=== PATIENT | male | born 2000 | race Two or more races ===

== ENCOUNTER 2023-05-02 20:11 | Inpatient (IN) | payer MEDICAID, OTHER ==
[~2023-05-02] VITALS: Ht 182.9 cm; Wt 125.0 kg
[2023-05-02] MEDS ORDERED: LORazepam 2MG/ML-1ML VIAL IV ONE (20:15)
[2023-05-02] MEDS ORDERED: LORazepam 2MG/ML-1ML VIAL ONE (20:17)
[2023-05-02 21:40] LABS: Albumin 3.3 g/dL (3.4-5.0); Calcium 8.1 mg/dL (8.5-10.1); Magnesium 1.6 mg/dL (1.6-2.6); Potassium 4.2 mmol/L (3.5-5.1)
[2023-05-02 21:45] LABS: INR 1.06 (0.9-1.15); Partial Thromboplastin Time 27.3 sec (24.6-33.4)
[2023-05-02 21:52] LABS: BUN/Creatinine Ratio 5.4 (10.0-20.0); Bilirubin, Total 0.4 mg/dL (0.2-1.0); Total Protein 6.2 g/dL (6.4-8.2)
[2023-05-02 22:25] LABS: Hematocrit 37.7 % (41.0-53.0); Hemoglobin 13.6 g/dL (13.5-17.5); Mean Corpuscular Hemoglobin 28.7 pg (28.0-32.0); Mean Corpuscular Hgb Conc. 36.1 g/dL (32.0-36.0); Mean Corpuscular Volume 79.4 fL (80.0-100.0); Red Blood Cells 4.75 10^6/uL (4.5-5.90); Red Cell Distribution Width 14.3 % (11.8-14.3); White Blood Cell 10.2 10^3/uL (4.4-10.8)
[2023-05-02 22:28] LABS: Band Neutrophils % (manual) 0; Basophils % (manual) 0 (0.0-2.0); Blast Cells 0; Eosinophils % (manual) 0 (0-7); Metamyelocytes % 0; Myelocytes % 0; Promyelocytes % 0; Reactive Lymphocytes 0
[2023-05-02] MEDS ORDERED: levETIRAcetam 500 MG/5ML INJ IV ONE (22:38)
[2023-05-02 22:42] LABS: Lymphocytes % (manual) 10 (10.0-50.0); Monocytes % (manual) 8 (0-12)
[2023-05-03] MEDS ORDERED: DexAMETHasone SOD PHOS 4 MG/1ML SDV INJ IV ONE (00:45)
[2023-05-03] MEDS ORDERED: CEFTRIAXONE SODIUM 2 GM in D5W 5% 100 ML IV ONE (00:45)
[2023-05-03] MEDS ORDERED: VANCOMYCIN 1GM/250ML 250 ML IV ONE ×2 (00:45→02:30)
[2023-05-03] MEDS ORDERED: NITROGLYCERIN 0.4 MG SL TAB SL PRN (01:00)
[2023-05-03] MEDS ORDERED: ONDANSETRON HCL 4 MG/2 ML VIAL IV PRN (01:00)
[2023-05-03] MEDS ORDERED: HYDROcodone-ACET 5/325MG TAB PO PRN (01:00)
[2023-05-03] MEDS ORDERED: VANCOMYCIN PER PHARMACY 0 MG IV SCH (01:00)
[2023-05-03] MEDS ORDERED: DOCUSATE SOD 100 MG CAP PO PRN (01:00)
[2023-05-03] MEDS ORDERED: ACETAMINOPHEN 325 MG TAB PO PRN (01:00)
[2023-05-03] MEDS: SODIUM CHLORIDE 0.9% 1,000 ML IV SCH ×2 (01:41→20:25)
[2023-05-03] MEDS ORDERED: cefTRIAXone SOD 1,000 MG VL ONE (01:47)
[2023-05-03] MEDS ORDERED: cefTRIAXone 1GM/50ML D5W 50 ML IV ONE (01:47)
[2023-05-03 04:52] LABS: Urine WBC None Seen /hpf (0 - 3)
[2023-05-03 04:59] LABS: Urine Bacteria NONE SEEN /hpf (None Seen); Urine Blood Negative /uL (Negative); Urine Hyaline Cast FEW /lpf (0 - 2); Urine Specific Gravity 1.001 (1.001-1.035)
[2023-05-03 05:17] LABS: Alcohol, Urine < 3.0 mg/dL (0-10); Amphetamine Screen, Urine NEGATIVE (NEGATIVE); Barbiturate Scree,Urine NEGATIVE (NEGATIVE); Benzodiazephine Screen, Urine NEGATIVE (NEGATIVE); Cannabinoid Screen, Urine NEGATIVE (NEGATIVE); Cocaine Screen, Urine NEGATIVE (NEGATIVE); Opiate Scree,Urine NEGATIVE (NEGATIVE); Phencyclidine Screen, Urine NEGATIVE (NEGATIVE)
[2023-05-03] MEDS ORDERED: VANCOMYCIN 1GM/250ML 250 ML IV SCH (09:00)
[2023-05-03] MEDS ORDERED: DexAMETHasone SOD PHOS 10MG/1ML VIAL INJ IV SCH (10:00)
[2023-05-03] MEDS: FAMOTIDINE (10MG/ML) 2ML VL IV SCH (10:19)
[2023-05-03] MEDS ORDERED: CEFEPIME 2 GM in SODIUM CHL 0.9% 50 ML IV SCH (15:15)
[2023-05-03] MEDS: VANCOMYCIN 1GM/250ML 250 ML IV SCH ×2 (16:14→23:40)
[2023-05-03] MEDS: DexAMETHasone INJECTION 10 MG in D5W 5% 50 ML IV SCH ×2 (16:33→21:52)
[2023-05-03] MEDS: CEFEPIME 2GM/50ML NS 50 ML IV SCH (16:48)
[2023-05-04] MEDS: CEFEPIME 2GM/50ML NS 50 ML IV SCH ×3 (00:34→16:08)
[2023-05-04] MEDS ORDERED: levETIRAcetam 500 MG/5ML INJ IV ONE (01:09)
[2023-05-04] MEDS: DexAMETHasone INJECTION 10 MG in D5W 5% 50 ML IV SCH ×3 (03:56→14:18)
[2023-05-04] MEDS: VANCOMYCIN 1GM/250ML 250 ML IV SCH (04:00)
[2023-05-04] MEDS: MORPHINE SULFATE INJ 2 MG/ml SYRG IV PRN ×2 (04:09→04:38)
[2023-05-04] MEDS ORDERED: LORazepam 2MG/ML-1ML VIAL IV ONE (04:30)
[2023-05-04] MEDS ORDERED: SODIUM CHLORIDE 0.9% 1,000 ML IV ONE (04:30)
[2023-05-04 04:52] LABS: Basophils # (auto) 0 10 ^3/uL (0-0.2); Basophils % (auto) 0.1 % (0.0-2.0); Eosinophils # (auto) 0 10 ^3/uL (0-0.8); Hematocrit 40.3 % (41.0-53.0); Hemoglobin 14.1 g/dL (13.5-17.5); Lymphocytes % (auto) 13.7 % (10.0-50.0); Mean Corpuscular Hemoglobin 29.5 pg (28.0-32.0); Mean Corpuscular Volume 84.4 fL (80.0-100.0); Monocytes # (auto) 0.3 10 ^3/uL (0-1.3); Monocytes % (auto) 3.6 % (0.0-12.0); Neutrophils % (auto) 82.6 % (37.0-80.0); Red Blood Cells 4.77 10^6/uL (4.5-5.90); Red Cell Distribution Width 15.1 % (11.8-14.3); White Blood Cell 7.3 10^3/uL (4.4-10.8)
[2023-05-04 05:13] LABS: Albumin 3.5 g/dL (3.4-5.0); BUN/Creatinine Ratio 10.3 (10.0-20.0); Calcium 8.7 mg/dL (8.5-10.1); Potassium 3.8 mmol/L (3.5-5.1)
[2023-05-04 05:15] LABS: Bilirubin, Total 0.3 mg/dL (0.2-1.0)
[2023-05-04] MEDS ORDERED: LORazepam 2MG/ML-1ML VIAL IV PRN (05:15)
[2023-05-04] MEDS ORDERED: DexAMETHasone SOD PHOS 10MG/1ML VIAL INJ ONE ×2 (08:33→14:13)
[2023-05-04] MEDS: FAMOTIDINE (10MG/ML) 2ML VL IV SCH (08:37)
[2023-05-04] MEDS: SODIUM CHLORIDE 0.9% 1,000 ML IV SCH (09:47)
[2023-05-04] MEDS: LORazepam 2MG/ML-1ML VIAL IV PRN ×2 (11:26→14:43)
[2023-05-04] MEDS ORDERED: VANCOMYCIN 1GM/250ML 250 ML IV SCH (16:00)
[2023-05-04 19:23] VITALS: BP 153/91
== END 2023-05-04 19:26 | disposition short-term general hospital (02) | DRG 53 ==
LOC: EDBD 20:11 → ER 20:22 → TELE 05-03 01:08
PROVIDERS: ADMIT Nurse Practitioner Family; ATTEND Nurse Practitioner Family
DX: G40.801 Other epilepsy, not intractable, with status epilepticus (principal); G93.6 Cerebral edema; R26.81 Unsteadiness on feet; E87.1 Hypo-osmolality and hyponatremia; Z20.822 Contact with and (suspected) exposure to COVID-19; Z87.820 Personal history of traumatic brain injury; Z87.891 Personal history of nicotine dependence
CPT/HCPCS: 36415; 70450; 71045; 71275; 80053; 80202; 80307; 81001; 83605; 83735; 84484; 85007; 85025; 85027; 85610; 85730; 87040; 87426; G0378; J0692; J0696; J1100; J2405; J3490; J7060

== ENCOUNTER 2023-05-13 20:30 | Inpatient (IN) | payer MEDICAID ==
[~2023-05-13] VITALS: Ht 180.3 cm; Wt 80.2 kg
[2023-05-13 23:58] VITALS: BP 111/68
[2023-05-14] MEDS ORDERED: LORazepam 2MG/ML-1ML VIAL IV PRN (00:45)
[2023-05-14] MEDS ORDERED: ONDANSETRON HCL 4 MG/2 ML VIAL IV PRN (00:45)
[2023-05-14] MEDS ORDERED: ACETAMINOPHEN 325 MG TAB PO PRN (00:45)
[2023-05-14] MEDS ORDERED: NITROGLYCERIN 0.4 MG SL TAB SL PRN (00:45)
[2023-05-14] MEDS ORDERED: MORPHINE SULFATE INJ 2 MG/ml SYRG IV PRN (00:45)
[2023-05-14] MEDS: TEMAZEPAM 15 MG CAP PO PRN ×2 (01:37→23:06)
[2023-05-14 02:24] LABS: Basophils # (auto) 0 10 ^3/uL (0-0.2); Basophils % (auto) 0.8 % (0.0-2.0); Eosinophils # (auto) 0.1 10 ^3/uL (0-0.8); Eosinophils % (auto) 2.4 % (0.0-7.0); Hematocrit 41.9 % (41.0-53.0); Hemoglobin 14.6 g/dL (13.5-17.5); Lymphocytes # (auto) 1.6 10 ^3/uL (0.4-5.4); Mean Corpuscular Hemoglobin 29.6 pg (28.0-32.0); Mean Corpuscular Hgb Conc. 34.9 g/dL (32.0-36.0); Mean Corpuscular Volume 84.9 fL (80.0-100.0); Monocytes # (auto) 0.4 10 ^3/uL (0-1.3); Monocytes % (auto) 6.9 % (0.0-12.0); Neutrophils % (auto) 57.9 % (37.0-80.0); Nucleated Red Blood Cells % 0.2 %; Red Blood Cells 4.93 10^6/uL (4.5-5.90); Red Cell Distribution Width 14.2 % (11.8-14.3); White Blood Cell 5.1 10^3/uL (4.4-10.8)
[2023-05-14 02:33] LABS: Albumin 3.6 g/dL (3.4-5.0); Calcium 9.1 mg/dL (8.5-10.1); Potassium 4.7 mmol/L (3.5-5.1)
[2023-05-14 02:38] LABS: BUN/Creatinine Ratio 18.5 (10.0-20.0); Bilirubin, Total 0.4 mg/dL (0.2-1.0); Total Protein 6.7 g/dL (6.4-8.2)
[2023-05-14 05:32] VITALS: BP 106/44
[2023-05-14] MEDS: GABAPENTIN 100 MG CAP PO SCH ×3 (06:12→21:07)
[2023-05-14 09:10] VITALS: BP 139/78
[2023-05-14] MEDS ORDERED: LACOSAMIDE 150 MG PO SCH (10:00)
[2023-05-14] MEDS: levETIRAcetam 500 MG/5ML ORAL SOLN UD PO SCH ×2 (10:05→21:08)
[2023-05-14] MEDS: LACOSAMIDE 50 MG TAB PO SCH ×2 (10:32→21:08)
[2023-05-14 12:23] VITALS: BP 147/89
[2023-05-14] MEDS: LORazepam 0.5 MG TAB PO PRN ×2 (14:55→18:39)
[2023-05-14] MEDS ORDERED: VANCOMYCIN PER PHARMACY 0 MG IV SCH (16:30)
[2023-05-14 16:57] VITALS: BP 132/73
[2023-05-14] MEDS ORDERED: VANCOMYCIN 1GM/250ML 250 ML IV ONE (17:30)
[2023-05-14] MEDS: ACETAMINOPHEN/CODEINE#3 (300/30mg) TAB PO PRN ×2 (17:38→21:47)
[2023-05-14] MEDS: MIRTAZAPINE 30 MG TAB PO SCH (21:07)
[2023-05-14] MEDS: CEFEPIME 2GM/50ML NS 50 ML IV SCH (21:08)
[2023-05-14 22:00] VITALS: BP 124/85
[2023-05-15] MEDS: ACETAMINOPHEN/CODEINE#3 (300/30mg) TAB PO PRN ×3 (02:24→20:54)
[2023-05-15] MEDS: VANCOMYCIN 1GM/250ML 250 ML IV SCH ×3 (02:24→23:07)
[2023-05-15 05:00] VITALS: BP 111/67
[2023-05-15] MEDS: GABAPENTIN 100 MG CAP PO SCH ×3 (05:47→20:54)
[2023-05-15] MEDS: CEFEPIME 2GM/50ML NS 50 ML IV SCH ×3 (05:47→20:54)
[2023-05-15 09:00] VITALS: BP_SYST 128; BP_SYST 132; BP_DIAS 58; BP_DIAS 88
[2023-05-15] MEDS: levETIRAcetam 500 MG/5ML ORAL SOLN UD PO SCH ×2 (11:00→21:36)
[2023-05-15] MEDS: LACOSAMIDE 50 MG TAB PO SCH ×2 (11:01→20:54)
[2023-05-15 13:00] VITALS: BP 125/85
[2023-05-15 17:00] VITALS: BP 134/82
[2023-05-15] MEDS: MIRTAZAPINE 30 MG TAB PO SCH (20:54)
[2023-05-15 22:12] VITALS: BP 115/77
[2023-05-15] MEDS: LORazepam 0.5 MG TAB PO PRN (23:06)
[2023-05-16] MEDS: TEMAZEPAM 15 MG CAP PO PRN (00:42)
[2023-05-16] MEDS: ACETAMINOPHEN/CODEINE#3 (300/30mg) TAB PO PRN ×3 (02:02→20:22)
[2023-05-16 05:00] VITALS: BP 105/67
[2023-05-16] MEDS: CEFEPIME 2GM/50ML NS 50 ML IV SCH ×3 (05:11→22:00)
[2023-05-16] MEDS: GABAPENTIN 100 MG CAP PO SCH ×3 (05:12→22:00)
[2023-05-16] MEDS: LORazepam 0.5 MG TAB PO PRN ×3 (05:19→20:22)
[2023-05-16 08:25] VITALS: BP 122/68
[2023-05-16] MEDS: VANCOMYCIN 1GM/250ML 250 ML IV SCH ×2 (10:34→19:00)
[2023-05-16] MEDS: LACOSAMIDE 50 MG TAB PO SCH ×2 (10:44→22:00)
[2023-05-16] MEDS: levETIRAcetam 500 MG/5ML ORAL SOLN UD PO SCH ×2 (10:47→22:00)
[2023-05-16 12:30] VITALS: BP 123/69
[2023-05-16] MEDS ORDERED: ATENOLOL 25 MG TAB PO ONE (13:45)
[2023-05-16 14:05] LABS: Calcium 9.3 mg/dL (8.5-10.1); Potassium 4.2 mmol/L (3.5-5.1)
[2023-05-16 16:20] VITALS: BP 126/83
[2023-05-16] MEDS ORDERED: ACET300T58 PO ×2 (17:09)
[2023-05-16] MEDS ORDERED: LORA-1123 PO (17:09)
[2023-05-16 19:00] VITALS: BP 126/83
[2023-05-16 22:00] VITALS: BP 106/65
[2023-05-16] MEDS: MIRTAZAPINE 30 MG TAB PO SCH (22:00)
[2023-05-17] MEDS: ACETAMINOPHEN/CODEINE#3 (300/30mg) TAB PO PRN (00:07)
[2023-05-17] MEDS ORDERED: ACET300T58 PO (10:57)
== END 2023-05-17 00:45 | disposition home or self-care (01) | DRG 50 ==
LOC: TELE 20:30 → UNDOADMIN 20:30 → TELE-WESTW 21:04 → TELE 21:04 → TELE-WESTW 21:50
PROVIDERS: ADMIT Internal Medicine; ATTEND Internal Medicine
DX: G03.9 Meningitis, unspecified (principal); G93.6 Cerebral edema; G40.901 Epilepsy, unspecified, not intractable, with status epilepticus; G91.9 Hydrocephalus, unspecified; F41.9 Anxiety disorder, unspecified; R00.0 Tachycardia, unspecified; R07.89 Other chest pain; R44.1 Visual hallucinations; Z87.820 Personal history of traumatic brain injury; Z86.61 Personal history of infections of the central nervous system; Z87.891 Personal history of nicotine dependence
CPT/HCPCS: 36415; 80048; 80053; 80202; 82565; 84443; 85025; 93005; 93306; G0378; J0692; J2405

== ENCOUNTER 2023-05-24 02:36 | Emergency (ER) | payer MEDICAID ==
[~2023-05-24] VITALS: Ht 177.8 cm; Wt 80.0 kg
[~2023-05-24 02:36] MED LIST: ACET300T58 PO; LORA-1123 PO
[2023-05-24 03:49] LABS: Alanine Aminotransferase 34 U/L (16-61); Albumin 3.2 g/dL (3.4-5.0); Anion Gap 6 (5-15); Aspartate Aminotransferase 28 U/L (15-37); BUN/Creatinine Ratio 13.2 (10.0-20.0); Blood Urea Nitrogen 10 mg/dL (7-18); Carbon Dioxide 26 mmol/L (21-32); Chloride 109 mmol/L (98-107); GFR African American 163 mL/min; GFR Non-African American 135 mL/min; Glucose 86 mg/dL (74-106); Sodium 141 mmol/L (136-145)
[2023-05-24 03:52] LABS: Alkaline Phosphatase 227 U/L (45-117); Bilirubin, Total 0.3 mg/dL (0.2-1.0); Total Protein 6.6 g/dL (6.4-8.2)
[2023-05-24 04:04] LABS: Basophils # (auto) 0.1 10 ^3/uL (0-0.2); Eosinophils # (auto) 0.5 10 ^3/uL (0-0.8); Eosinophils % (auto) 6.3 % (0.0-7.0); Hematocrit 42.3 % (41.0-53.0); Lymphocytes # (auto) 2.7 10 ^3/uL (0.4-5.4); Lymphocytes % (auto) 37.7 % (10.0-50.0); Mean Corpuscular Hemoglobin 29.5 pg (28.0-32.0); Mean Corpuscular Hgb Conc. 35.4 g/dL (32.0-36.0); Mean Corpuscular Volume 83.4 fL (80.0-100.0); Monocytes # (auto) 0.4 10 ^3/uL (0-1.3); Neutrophils # (auto) 3.6 10 ^3/uL (1.6-8.6); Nucleated Red Blood Cells % 0.6 %; Red Blood Cells 5.08 10^6/uL (4.5-5.90); Red Cell Distribution Width 13.8 % (11.8-14.3); White Blood Cell 7.2 10^3/uL (4.4-10.8)
[2023-05-24] MEDS ORDERED: SODIUM CHLORIDE 0.9% 1,000 ML IV ONE (06:45)
[2023-05-24] MEDS ORDERED: LORazepam 2MG/ML-1ML VIAL IV ONE (06:45)
[2023-05-24 06:48] LABS: Urine Bacteria MOD /hpf (None Seen); Urine Blood Negative /uL (Negative); Urine Hyaline Cast FEW /lpf (0 - 2); Urine Specific Gravity 1.005 (1.001-1.035); Urine WBC <1 /hpf (0 - 3)
[2023-05-24] MEDS ORDERED: NITR-87 PO (07:04)
[2023-05-24] MEDS ORDERED: LORA-1121 PO (07:04)
[2023-05-24 07:07] LABS: Basophils # (auto) 0 10 ^3/uL (0-0.2); Basophils % (auto) 0.4 % (0.0-2.0); Eosinophils # (auto) 0 10 ^3/uL (0-0.8); Eosinophils % (auto) 0.4 % (0.0-7.0); Hematocrit 43.2 % (41.0-53.0); Lymphocytes # (auto) 0.9 10 ^3/uL (0.4-5.4); Mean Corpuscular Hemoglobin 29.4 pg (28.0-32.0); Mean Corpuscular Hgb Conc. 34.8 g/dL (32.0-36.0); Mean Corpuscular Volume 84.5 fL (80.0-100.0); Monocytes # (auto) 0.2 10 ^3/uL (0-1.3); Monocytes % (auto) 4.2 % (0.0-12.0); Neutrophils # (auto) 4.1 10 ^3/uL (1.6-8.6); Nucleated Red Blood Cells % 0.1 %; Red Blood Cells 5.11 10^6/uL (4.5-5.90); Red Cell Distribution Width 13.7 % (11.8-14.3); White Blood Cell 5.3 10^3/uL (4.4-10.8)
[2023-05-24 07:25] LABS: Albumin 3.4 g/dL (3.4-5.0); Calcium 9.2 mg/dL (8.5-10.1); Potassium 4.1 mmol/L (3.5-5.1)
[2023-05-24 07:28] LABS: BUN/Creatinine Ratio 12.9 (10.0-20.0); Bilirubin, Total 0.2 mg/dL (0.2-1.0); Total Protein 6.9 g/dL (6.4-8.2)
[2023-05-24 12:23] VITALS: BP 111/70
== END 2023-05-24 12:30 | disposition home or self-care (01) ==
LOC: ER 02:36 → EDBD 02:36 → ER 12:30
DX: G40.909 Epilepsy, unspecified, not intractable, without status epilepticus (principal); N39.0 Urinary tract infection, site not specified
CPT/HCPCS: 36415; 70450; 80053; 81001; 85025; 96365; 96375; 99285; J1953; J2060; J7030; J7060

== ENCOUNTER 2023-05-30 04:25 | Emergency (ER) | payer MEDICAID ==
[~2023-05-30] VITALS: Ht 172.7 cm; Wt 100.0 kg
[~2023-05-30 04:25] MED LIST changes: +LORA-1121 PO; +NITR-87 PO
[2023-05-30 05:24] LABS: Basophils # (auto) 0 10 ^3/uL (0-0.2); Basophils % (auto) 0.6 % (0.0-2.0); Eosinophils # (auto) 0.1 10 ^3/uL (0-0.8); Eosinophils % (auto) 2.2 % (0.0-7.0); Hematocrit 44.7 % (41.0-53.0); Hemoglobin 15.4 g/dL (13.5-17.5); Lymphocytes # (auto) 1.3 10 ^3/uL (0.4-5.4); Lymphocytes % (auto) 29.2 % (10.0-50.0); Mean Corpuscular Hemoglobin 29.6 pg (28.0-32.0); Mean Corpuscular Hgb Conc. 34.5 g/dL (32.0-36.0); Mean Corpuscular Volume 85.8 fL (80.0-100.0); Monocytes # (auto) 0.3 10 ^3/uL (0-1.3); Monocytes % (auto) 6.9 % (0.0-12.0); Neutrophils # (auto) 2.6 10 ^3/uL (1.6-8.6); Neutrophils % (auto) 61.1 % (37.0-80.0); Red Blood Cells 5.22 10^6/uL (4.5-5.90); Red Cell Distribution Width 13.5 % (11.8-14.3); White Blood Cell 4.3 10^3/uL (4.4-10.8)
[2023-05-30 06:00] LABS: Albumin 3.7 g/dL (3.4-5.0); Calcium 9.3 mg/dL (8.5-10.1); Potassium 4.2 mmol/L (3.5-5.1)
[2023-05-30 06:03] LABS: BUN/Creatinine Ratio 8.9 (10.0-20.0); Bilirubin, Total 0.4 mg/dL (0.2-1.0); Total Protein 7.2 g/dL (6.4-8.2)
[2023-05-30] MEDS ORDERED: SODIUM CHLORIDE 0.9% 1,000 ML IVB ONE (06:30)
[2023-05-30] MEDS ORDERED: LORazepam 2MG/ML-1ML VIAL IV ONE (06:30)
[2023-05-30] MEDS ORDERED: SODIUM CHLORIDE 0.9% 1,000 ML IV ONE (07:00)
[2023-05-30 07:07] LABS: INR 1.07 (0.9-1.15); Partial Thromboplastin Time 28.3 SEC (24.5-34.5)
[2023-05-30 07:15] LABS: Blood Alcohol < 3.0 mg/dL (<10); Magnesium 2.3 mg/dL (1.6-2.6)
[2023-05-30] MEDS ORDERED: LORazepam 2MG/ML-1ML VIAL IV PRN (08:15)
[2023-05-30 13:51] VITALS: BP 113/76
== END 2023-05-30 14:24 | disposition short-term general hospital (02) ==
LOC: EDBD 04:25 → EDUNIT# 04:25 → ER 04:25
DX: R56.9 Unspecified convulsions (principal); Z87.820 Personal history of traumatic brain injury; Z79.899 Other long term (current) drug therapy; Z79.01 Long term (current) use of anticoagulants
CPT/HCPCS: 36415; 70450; 71045; 80053; 80320; 82962; 83735; 85025; 85610; 85730; 93005; 96361; 96365; 96375; 99285; J1953; J2060; J7030; J7060

== ENCOUNTER 2025-03-30 08:31 | Inpatient (IN) | payer MEDICARE, MEDICAID ==
[~2025-03-30] VITALS: Ht 177.8 cm; Wt 118.1 kg
--- NOTE | 2025-03-30 08:44 | ED.PDOC ---
HPI (NEURO) HPI Comments 25 year old male MELONY presents to the ED with chief complaint of seizure. EMS reports that the patient had been witnessed by his grandmother to have had a tonic-clonic seizure lasting about 5 minutes this morning. EMS relays that the patient did not have any head or facial injury, however, he had associated nose bleeding and vomiting. EMS states patient is still post-ictal upon arrival to the ED. EMS notes patient's last seizure was in 2022 and he takes Keppra daily. Grandmother denies any head injury, trauma, headache, dizziness, fever, chills, chest pain, or SOB. Chief Complaint: Seizure Time Seen by MD: 08:37 Reviewed Notes: Nurses Notes, Building Construction Supervisor Notes, Medications, Allergies Information Source: Patient, Relative (Grand mother), Emergency Med Personnel Mode of Arrival: Ambulatory Severity: Moderate Timing: Hours Duration: Minutes Prehospital treatment: None Seizure Quality: Tonic-clonic Seizure Location: Generalized Onset: At rest Circumstances: Spontaneous History of: Seizure Disorder Associated Signs and Symptoms: Vomiting, Other (Nosebleed) Past Medical History PAST MEDICAL HISTORY: Asthma, Seizures Past Medical History (Other): TBI 2021 Surgical History: Denies all surgeries Family History Family History: Unknown Social History Smoker: Non-Smoker Alcohol: Denies ETOH Use Drugs: Denies Drug Use Lives In: Home Constitutional: denies: chills, diaphoresis, fatigue, fever, malaise, sweats, weakness, others EENTM: reports: nose bleeding; denies: blurred vision, double vision, ear bleeding, ear discharge, ear drainage, ear pain, ear ringing, eye pain, eye redness, hearing loss, mouth pain, mouth swelling, nasal discharge, nose congestion, nose pain, photophobia, tearing, throat pain, throat swelling, voice changes, others Respiratory: denies: cough, hemoptysis, orthopnea, SOB at rest, shortness of breath, SOB with excertion, stridor, wheezing, others Cardiovascular: denies: chest pain, dizzy spells, diaphoresis, Dyspnea on exertion, edema, irregular heart beat, left arm pain, lightheadedness, palpitations, PND, syncope, others Gastrointestinal: reports: vomiting; denies: abdomen distended, abdominal pain, blood streaked bowels, constipated, diarrhea, dysphagia, difficulty swallowing, hematemesis, melena, nausea, poor appetite, poor fluid intake, rectal bleeding, rectal pain, others Genitourinary: denies: burning, dysuria, flank pain, frequency, hematuria, incontinence, penile discharge, penile sore, pain, testicle pain, testicle swelling, urgency, others Neurological: reports: seizure; denies: dizziness, fainting, headache, left sided numbness, left sided weakness, numbness, paresthesia, pre-existing deficit, right sided numbness, right sided weakness, speech problems, tingling, tremors, weakness, others Musculoskeletal: denies: back pain, gout, joint pain, joint swelling, muscle pain, muscle stiffness, neck pain, others Integumetry: denies: bruises, change in color, change in hair/nails, dryness, laceration, lesions, lumps, rash, wounds, others Allergic/Immunocompromised: denies: Difficulty Healing, Frequent Infections, Hi ves, Itching, others Hematologic/Lymphatic: denies: anemia, blood clots, easy bleeding, easy bruising, swollen glands, others Endocrine: denies: excessive hunger, excessive sweating, excessive thirst, excessive urination, flushing, intolerance to cold, intolerance to heat, unexplained weight gain, unexplained weight loss, others Psychiatric: denies: anxiety, bipolar disorder, depression, hopeless, panic disorder, schizophrenia, sleepless, suicidal, others All Other Systems: Reviewed and Negative Physical Exam General Appearance: Moderate Distress, Normal HEENT: Normal ENT Inspection, Pharynx Normal, TMs Normal Neck: Full Range of Motion, Non-Tender, Normal, Normal Inspection Respiratory: Chest Non-Tender, Lungs Clear, No Accessory Muscle Use, No Respiratory Distress, Normal Breath Sounds Cardiovascular: No Edema, No JVD, No Murmur, No Gallop, Normal Peripheral Pulses, Regular Rate/Rhythm Breast Exam: Deferred Gastrointestinal: No Organomegaly, Non Tender, No Pulsatile Mass, Normal Bowel Sounds, Soft Genitalia: Deferred Pelvic: Deferred Rectal: Deferred Extremities: No calf tenderness, Normal capillary refill, No pedal edema Musculoskeletal : Apperance: Normal Neurologic: psychiatric technician II-XII nml as Tested, Disoriented, No Motor Deficits, Normal Affect, Normal Mood, No Sensory Deficits Cerebellar Function: NOT DONE Reflexes: NOT DONE Skin: Dry, Normal Color, Warm Peripheral Pulses: 3+ Radial (R), 3+ Radial (L) Lymphatic: No Adenopathy Was a procedure done? Was a procedure done?: No Differential Diagnosis (SZ) Seizure: Psychogenic Seizure, Closed Head Injury, CVA/TIA X-Ray, Labs, Meds, VS Vital Signs Date Time Temp Pulse Resp B/P (MAP) Pulse Ox O2 Delivery O2 Flow Rate FiO2 03/30/25 11:00 Room Air* 0 21 03/30/25 08:37 98.2 125 18 147/75 (99) 97 98.2 Lab Test 03/30/25 08:59 Range/Units White Blood Count 6.3 4.4-10.8 10^3/uL Red Blood Count 4.54 4.5-5.90 10^6/uL Hemoglobin 11.2 L 13.5-17.5 g/dL Hematocrit 34.9 L 41.0-53.0 % Mean Corpuscular Volume 76.8 L 80.0-100.0 fL Mean Corpuscular Hemoglobin 24.7 L 28.0-32.0 pg Mean Corpuscular Hemoglobin Concent 32.1 32.0-36.0 g/dL Red Cell Distribution Width 15.3 H 11.8-14.3 % Platelet Count 381 140-450 10^3/uL Mean Platelet Volume 7.9 6.9-10.8 fL Neutrophils (%) (Auto) 72.9 37.0-80.0 % Lymphocytes (%) (Auto) 20.6 10.0-50.0 % Monocytes (%) (Auto) 4.6 0.0-12.0 % Eosinophils (%) (Auto) 1.5 0.0-7.0 % Basophils (%) (Auto) 0.4 0.0-2.0 % Neutrophils # (Auto) 4.6 1.6-8.6 10 ^3/uL Lymphocytes # (Auto) 1.3 0.4-5.4 10 ^3/uL Monocytes # (Auto) 0.3 0-1.3 10 ^3/uL Eosinophils # (Auto) 0.1 0-0.8 10 ^3/uL Basophils # (Auto) 0 0-0.2 10 ^3/uL Nucleated Red Blood Cells 0.0 % Sodium Level 141 136-145 mmol/L Potassium Level 3.4 L 3.5-5.1 mmol/L Chloride Level 109 H 98-107 mmol/L Carbon Dioxide Level 21 20-31 mmol/L Anion Gap 11 5-15 Blood Urea Nitrogen 7 L 9-23 mg/dL Creatinine 0.77 0.700-1.30 mg/dL Glomerular Filtration Rate Calc 127 >90 mL/min BUN/Creatinine Ratio 9.1 L 10.0-20.0 Serum Glucose 158 H 74-106 mg/dL Calcium Level 9.7 8.7-10.4 mg/dL Current Medications Medications (Trade) Dose Ordered Sig/Xiang Route Start Time Stop Time Status Last Admin Sodium Chloride 1,000 ml @ 1,000 mls/hr Q1H ONCE IV 03/30/25 08:45 03/30/25 09:44 DC 03/30/25 10:20 Lorazepam (Ativan Inj) 1 mg ONCE ONCE IV 03/30/25 08:45 03/30/25 08:46 DC 03/30/25 08:45 Levetiracetam 100 ml @ 400 mls/hr ONCE ONCE IV 03/30/25 08:45 03/30/25 08:59 DC 03/30/25 08:45 CT Head: FINDINGS: Supratentorial Region: Large left MCA and AMAURI territory encephalomalacia. A moderate-sized left subdural hygroma noted of the lateral aspect of the frontoparietal lobes measuring 1.5 cm in thickness. No midline shift. Posterior Fossa: No acute abnormality. Brainstem: Unremarkable. Sellar/Suprasellar Region: Unremarkable. Ventricles, Cisterns, Sulci: Severe ex vacuo dilatation of the left lateral ventricle. A ventricular drainage catheter is seen in the occipital horn of the left lateral ventricle. Orbits: Unremarkable. Paranasal Sinuses: Unremarkable. Mastoid Air Cells: Unremarkable. Vasculature: Unremarkable. Bones/Soft Tissues: No acute abnormality. Left frontoparietal temporal craniotomy. Right sided frontal bone jed holes noted. Other: None. IMPRESSION: 1. No acute intracranial process. 2. Left supratentorial Postoperative changes underlying cystic encephalomalacia, ex vacuo dilatation of the left lateral ventricle a moderate-sized subdural hygroma. No midline shift is noted. Patient disoriented. History of seizure. Does have nasal bleeding from possible seizure. Vitals stable. Bleeding stopped prior to coming to the ER. He is taking his Keppra. CT of the head reviewed does not show any acute process. He has been comfortable in the ER. Was given Ativan. Was given Keppra. Reviewed his history. Continue monitoring. Explained to the family that he will be admitted for further workup neurology consultation. Images Reviewed?: Images reviewed and evaluated by me Time of 1ST Reevaluation: 09:37 Reevaluation 1ST: Unchanged Patient Education/Counseling: Diagnosis, Treatment Family Education/Counseling: No Family Present Departure 1 Departure Time of Disposition: 13:01 Impression: Primary Impression: Metabolic encephalopathy Additional Impression: Seizure disorder Disposition: ADMITTED INPATIENT Admit to: Med Surg Condition: Guarded Comments Spoke to and examined patient at 0837, discussing treatment plan at this time. Critical Care Note Critical Care Time?: No Stability Stability form required: No Heart Score Heart Score: Heart Score Response (Comments) Value History N/A 0 EKG N/A 0 Age N/A 0 Risk Factors N/A 0 Troponin N/A 0 Total 0 I personally scribed for BETHANIE KENT MD ([email or web address]) on 03/30/25 at 08:44. Electronically submitted by Fermin Alfonso ([email or web address]). I personally scribed for BETHANIE KENT MD ([email or web address]) on 03/30/25 at 12:47. Electronically submitted by Fermin Alfonso ([email or web address]). BETHANIE KENT MD March 30, 2025 08:44
[2025-03-30] MEDS: LORazepam 2MG/ML-1ML VIAL IV ONE (08:45)
[2025-03-30] MEDS: levETIRAcetam 1000 mg/100ml 100 ML IV ONE (08:45)
[2025-03-30] MEDS: SODIUM CHLORIDE 0.9% 1,000 ML IV ONE ×2 (08:45→10:20)
[2025-03-30 09:21] LABS: Basophils # (auto) 0 10 ^3/uL (0-0.2); Basophils % (auto) 0.4 % (0.0-2.0); Eosinophils # (auto) 0.1 10 ^3/uL (0-0.8); Eosinophils % (auto) 1.5 % (0.0-7.0); Hematocrit 34.9 % (41.0-53.0); Hemoglobin 11.2 g/dL (13.5-17.5); Lymphocytes # (auto) 1.3 10 ^3/uL (0.4-5.4); Lymphocytes % (auto) 20.6 % (10.0-50.0); Mean Corpuscular Hemoglobin 24.7 pg (28.0-32.0); Mean Corpuscular Hgb Conc. 32.1 g/dL (32.0-36.0); Mean Corpuscular Volume 76.8 fL (80.0-100.0); Monocytes # (auto) 0.3 10 ^3/uL (0-1.3); Monocytes % (auto) 4.6 % (0.0-12.0); Neutrophils # (auto) 4.6 10 ^3/uL (1.6-8.6); Neutrophils % (auto) 72.9 % (37.0-80.0); Platelet Count (auto) 381 10^3/uL (140-450); Red Blood Cells 4.54 10^6/uL (4.5-5.90); Red Cell Distribution Width 15.3 % (11.8-14.3); White Blood Cell 6.3 10^3/uL (4.4-10.8)
[2025-03-30 09:25] LABS: Anion Gap 11 (5-15); Carbon Dioxide 21 mmol/L (20-31); Sodium 141 mmol/L (136-145)
[2025-03-30 09:26] LABS: Calcium 9.7 mg/dL (8.7-10.4)
[2025-03-30 09:30] LABS: BUN/Creatinine Ratio 9.1 (10.0-20.0)
[2025-03-30 09:33] LABS: Blood Urea Nitrogen 7 mg/dL (9-23); Chloride 109 mmol/L (98-107); Glucose 158 mg/dL (74-106); Potassium 3.4 mmol/L (3.5-5.1)
--- NOTE | 2025-03-30 12:42 | DVH ---
EXAM: CT HEAD WITHOUT CONTRAST HISTORY: seizure COMPARISON: CT HEAD WITHOUT CONTRAST on DOS: 07/05/24, CT HEAD WITHOUT CONTRAST on DOS: 05/30/23, CT HE AD WITHOUT CONTRAST on DOS: 05/24/23 TECHNIQUE: Axial images were obtained and reformatted in coronal and sagittal planes. All CT scans at this medical facility are performed using dose modulation techniques as appropriate t o a performed exam including the following: Automated exposure control was utilized; adjustment of th e MA and/or KV according to patient size; and use of iterative reconstruction technique. CT Dose: CTDI volume is 66.5 mGy. Dose-length product is 1310.25 mGy*cm FINDINGS: Supratentorial Region: Large left MCA and AMAURI territory encephalomalacia. A moderate-sized left sub dural hygroma noted of the lateral aspect of the frontoparietal lobes measuring 1.5 cm in thickness. No midline shift. Posterior Fossa: No acute abnormality. Brainstem: Unremarkable. Sellar/Suprasellar Region: Unremarkable. Ventricles, Cisterns, Sulci: Severe ex vacuo dilatation of the left lateral ventricle. A ventricular drainage catheter is seen in the occipital horn of the left lateral ventricle. Orbits: Unremarkable. Paranasal Sinuses: Unremarkable. Mastoid Air Cells: Unremarkable. Vasculature: Unremarkable. Bones/Soft Tissues: No acute abnormality. Left frontoparietal temporal craniotomy. Right sided front al bone jed holes noted. Other: None. IMPRESSION: 1. No acute intracranial process. 2. Left supratentorial Postoperative changes underlying cystic encephalomalacia, ex vacuo dilatation of the left lateral ventricle a moderate-sized subdural hygroma. No midline shift is noted.
[2025-03-30] MEDS ORDERED: ACETAMINOPHEN 325 MG TAB PO PRN (16:30)
[2025-03-30] MEDS ORDERED: ONDANSETRON HCL 4 MG/2 ML VIAL IV PRN (16:30)
[2025-03-30] MEDS ORDERED: DOCUSATE SOD 100 MG CAP PO PRN (16:30)
[2025-03-30] MEDS ORDERED: ESCI1TAB37 PO (16:48)
[2025-03-30] MEDS ORDERED: CHOL1TAB30 PO (16:48)
[2025-03-30] MEDS ORDERED: MIRT1TAB38 PO (16:48)
[2025-03-30] MEDS ORDERED: INDO-34 PO (16:48)
[2025-03-30] MEDS ORDERED: GABA-1250 PO (16:48)
[2025-03-30] MEDS ORDERED: LEVE750T3 PO (16:48)
[2025-03-30] MEDS ORDERED: BACL20TA PO (16:48)
[2025-03-30] MEDS ORDERED: FAMO-12 PO (16:48)
[2025-03-30] MEDS ORDERED: LACO200T3 PO (16:48)
--- NOTE | 2025-03-30 17:16 | DVHHP2 ---
History of Present Illness Reason for Visit: Headache/blurred vision History of Present Illness Vadim العلي is a 25-year-old male with past medical history of epilepsy, traumatic brain injury s/p craniectomy at [facility] in July 2022. Patient was brought to ER today due to a seizure. Patient was at home with his mother. She has a camera in his room and she thought she saw him having a seizure. She states she went in there and he was foaming at the mouth and shaking, but he was talking to her. She called EMS and had him brought in. After being here the mother reached out to his doctor and sent him the video of the seizure. She states he said it is not a seizure, it is a response from the surgery he recently had. The patient had right hip surgery 03/01/2025 and is recovering from that and experiencing pain that causes him to shake. The mother also states that she has been doing dressing changes to his right hip surgical wound 2-3 times a day. She states that 3 of the jareth came out and it is a little open. She is using butterfly bandages to hold it together. Pulmonary: Asthma GROCERY CADDY: Other (traumatic brain injury, epilepsy) Past Surgical History: Other (Craniectomy July 2022, right hip surgery 03/01/2025) Smoke: No ALCOHOL: none Drugs: None Lives: with Family Domestic Violence: Neg Review of Systems Constitutional: No: Fever, Chills, Sweats, Weakness, Malaise, Other Eyes: No: Pain, Vision change, Conjunctivae inflammation, Eyelid inflammation, Other, Redness ENT: No: Ear pain, Ear discharge, Nose pain, Nose discharge, Nose congestion, Mouth pain, Mouth swelling, Throat pain, Throat swelling, Other Respiratory: No: Cough, Dry, Shortness of breath, SOB with excertion, Wheezing, Hemoptysis, Pleuritic Pain, Sputum, Wheezing, Other Cardiovascular: No: Chest Pain, Palpitations, Orthopnea, Paroxysmal Noc. Dyspnea, Edema, Lt Headedness, Other Gastrointestinal: No: Nausea, Vomiting, Abdominal Pain, Diarrhea, Constipation, Melena, Hematochezia, Other Genitourinary: No Dysuria, No Frequency, No Incontinence, No Hematuria, No Retention, No Other Musculoskeletal: No: other, neck pain, shoulder pain, arm pain, back pain, hand pain, leg pain, foot pain Skin: No: Rash, Lesions, Jaundice, Bruising, Other Neurological: Confusion, Seizures; No: Weakness, Numbness, Incoordination, Change in speech, Other Allergies: Coded Allergies: Morphine (Verified Allergy, Unknown, HALLUCINATIONS, 05/24/23) Medications Current Medications Medications Dose Ordered Sig/Xiang Route Start Time Stop Time Status Last Admin Dose Admin Sodium Chloride 10 ml Q8HR IV 03/30/25 22:00 UNV Acetaminophen/ Hydrocodone Bitart 1 tab Q4HP PRN PO 03/30/25 16:30 UNV Ondansetron HCl 4 mg Q4HP PRN IV 03/30/25 16:30 UNV Docusate Sodium 100 mg BIDPRN PRN PO 03/30/25 16:30 UNV Acetaminophen 650 mg Q6HP PRN PO 03/30/25 16:30 UNV Exam Vital Signs Vital Signs Date Time Temp Pulse Resp B/P (MAP) Pulse Ox O2 Delivery O2 Flow Rate FiO2 03/30/25 16:30 99 18 122/69 (86) 96 03/30/25 11:00 Room Air* 0 21 03/30/25 08:37 98.2 98.2 General Appearance: Alert, Cooperative, moderate distress HEENT: Atraumatic, PERRLA, EOMI Respiratory: Clear to auscultation, Normal air movement Cardiovascular: Regular rate, Normal S1, Normal S2, No murmurs Abdominal: Normal bowel sounds, Soft, No tenderness, No hepatospenomegaly Extremities: No clubbing, No cyanosis, No edema, Normal pulses, No tenderness/swelling Skin: No rashes, No breakdown (open surgical wound to right hip) Neuro: Other (S/P TBI, right sided weakness, right arm contracted.) Psych/Mental Status: Mood NL Labs/Xrays Labs Test 03/30/25 08:59 Range/Units White Blood Count 6.3 4.4-10.8 10^3/uL Red Blood Count 4.54 4.5-5.90 10^6/uL Hemoglobin 11.2 L 13.5-17.5 g/dL Hematocrit 34.9 L 41.0-53.0 % Mean Corpuscular Volume 76.8 L 80.0-100.0 fL Mean Corpuscular Hemoglobin 24.7 L 28.0-32.0 pg Mean Corpuscular Hemoglobin Concent 32.1 32.0-36.0 g/dL Red Cell Distribution Width 15.3 H 11.8-14.3 % Platelet Count 381 140-450 10^3/uL Mean Platelet Volume 7.9 6.9-10.8 fL Neutrophils (%) (Auto) 72.9 37.0-80.0 % Lymphocytes (%) (Auto) 20.6 10.0-50.0 % Monocytes (%) (Auto) 4.6 0.0-12.0 % Eosinophils (%) (Auto) 1.5 0.0-7.0 % Basophils (%) (Auto) 0.4 0.0-2.0 % Neutrophils # (Auto) 4.6 1.6-8.6 10 ^3/uL Lymphocytes # (Auto) 1.3 0.4-5.4 10 ^3/uL Monocytes # (Auto) 0.3 0-1.3 10 ^3/uL Eosinophils # (Auto) 0.1 0-0.8 10 ^3/uL Basophils # (Auto) 0 0-0.2 10 ^3/uL Nucleated Red Blood Cells 0.0 % Sodium Level 141 136-145 mmol/L Potassium Level 3.4 L 3.5-5.1 mmol/L Chloride Level 109 H 98-107 mmol/L Carbon Dioxide Level 21 20-31 mmol/L Anion Gap 11 5-15 Blood Urea Nitrogen 7 L 9-23 mg/dL Creatinine 0.77 0.700-1.30 mg/dL Glomerular Filtration Rate Calc 127 >90 mL/min BUN/Creatinine Ratio 9.1 L 10.0-20.0 Serum Glucose 158 H 74-106 mg/dL Calcium Level 9.7 8.7-10.4 mg/dL EXAM: CT HEAD WITHOUT CONTRAST FINDINGS: Supratentorial Region: Large left MCA and AMAURI territory encephalomalacia. A moderate-sized left subdural hygroma noted of the lateral aspect of the frontoparietal lobes measuring 1.5 cm in thickness. No midline shift. Posterior Fossa: No acute abnormality. Brainstem: Unremarkable. Sellar/Suprasellar Region: Unremarkable. Ventricles, Cisterns, Sulci: Severe ex vacuo dilatation of the left lateral ventricle. A ventricular drainage catheter is seen in the occipital horn of the left lateral ventricle. Orbits: Unremarkable. Paranasal Sinuses: Unremarkable. Mastoid Air Cells: Unremarkable. Vasculature: Unremarkable. Bones/Soft Tissues: No acute abnormality. Left frontoparietal temporal craniotomy. Right sided frontal bone jed holes noted. Other: None. IMPRESSION: 1. No acute intracranial process. 2. Left supratentorial Postoperative changes underlying cystic encephalomalacia, ex vacuo dilatation of the left lateral ventricle a moderate-sized subdural hygroma. No midline shift is noted. Assessment/Plan Assessment/Plan Assessment: Metabolic encephalopathy, Seizure, S/P TBI epilepsy, Plan: Admit to Med-Surg, Wound care consult, Physical therapy evaluation, Fall precautions, Seizure precautions, Home medications reconciled, Consider neurology consult if patient worsens, Plan discussed with: Patient, Other (mother, grandmother) My Orders Orders - MORALES CARNES Procedure Category Date Status Time Admit ADMIT 03/30/25 Transmitted 16:22 Code Status CODE 03/30/25 Transmitted 16:22 Sodium Chloride Lock PHA 03/30/25 Logged (Saline Lock Ns) 22:00 Hydrocodone-Acet PHA 03/30/25 Logged 5/325mg Tab ([place] 16:30 Ondansetron Hcl PHA 03/30/25 Logged (Zofran) 16:30 Docusate Sodium PHA 03/30/25 Logged Capsule (Colace 16:30 Fall Risk Precautions JAY 03/30/[address] 16:22 Complete Blood Count LAB 03/31/25 Verified 04:00 Comprehensive LAB 03/31/25 Verified Metabolic Panel 04:00 Pt Request For Service PT 03/30/25 Logged 16:22 Condition: Serious JAY 03/30/25 In Process 16:22 Acetaminophen Tablet PHA 03/30/25 Logged (Tylenol Tablet) 16:30 * Wound Consult CONS 03/30/25 Transmitted Seizure Precautions JAY 03/30/[address] 16:22 Cholecalciferol PHA 03/31/25 Verified Tablet (Vitamin D3 10:00 Famotidine Tablet PHA 03/30/25 Verified (Pepcid Tablet) 22:00 Gabapentin Capsule PHA 03/30/25 Verified (Neurontin Capsule) 22:00 Indomethacin Capsule PHA 03/30/25 Verified (Indocin Capsule) 22:00 (Nf) Baclofen PHA 03/30/25 Verified 18:00 (Nf) Escitalopram PHA 03/31/25 Verified Oxalate 10:00 (Nf) Lacosamide PHA 03/30/25 Verified 22:00 (Nf) Levetiracetam PHA 03/30/25 Verified 22:00 (Nf) Mirtazapine PHA 03/31/25 Verified (Mirtazapine Oral 10:00 Date of Service: March 30, 2025 Billing Provider: MORALES CARNES Common Visit Codes: [id number] INP/OBS CARE (MOD) MORALES CARNES March 30, 2025 17:16
[2025-03-30 17:23] VITALS: PULSE 100; RESP 14; O2SAT 96
[2025-03-30] MEDS: HYDROcodone-ACET 5/325MG TAB PO PRN (17:31)
[2025-03-30] MEDS: BACLOFEN 10 MG TAB PO SCH (17:55)
[2025-03-30 21:01] VITALS: PULSE 90; RESP 18; O2SAT 99
[2025-03-30] MEDS: SODIUM CHLOR 0.9% PF (SALINE LOCK) 10ML VIAL/SYR IV SCH (21:50)
[2025-03-30] MEDS: FAMOTIDINE 20 MG TAB PO SCH (21:54)
[2025-03-30] MEDS: GABAPENTIN 300 MG CAP PO SCH (21:54)
[2025-03-30] MEDS: levETIRAcetam 500 MG TAB PO SCH (21:54)
[2025-03-30] MEDS: INDOMETHACIN 25 MG CAP PO SCH (22:05)
[2025-03-31 05:54] LABS: Basophils # (auto) 0 10 ^3/uL (0-0.2); Hemoglobin 10.3 g/dL (13.5-17.5); Lymphocytes # (auto) 0.8 10 ^3/uL (0.4-5.4); Monocytes # (auto) 0.2 10 ^3/uL (0-1.3); Neutrophils # (auto) 2.7 10 ^3/uL (1.6-8.6); White Blood Cell 3.8 10^3/uL (4.4-10.8)
[2025-03-31 05:59] LABS: Basophils % (auto) 0.7 % (0.0-2.0); Eosinophils # (auto) 0.1 10 ^3/uL (0-0.8); Eosinophils % (auto) 1.5 % (0.0-7.0); Lymphocytes % (auto) 20.2 % (10.0-50.0); Mean Corpuscular Hemoglobin 25.2 pg (28.0-32.0); Mean Corpuscular Hgb Conc. 33.2 g/dL (32.0-36.0); Mean Corpuscular Volume 75.9 fL (80.0-100.0); Monocytes % (auto) 6.4 % (0.0-12.0); Neutrophils % (auto) 71.2 % (37.0-80.0); Nucleated Red Blood Cells % 0.1 %; Platelet Count (auto) 374 10^3/uL (140-450); Red Blood Cells 4.09 10^6/uL (4.5-5.90); Red Cell Distribution Width 15.6 % (11.8-14.3)
[2025-03-31 06:14] LABS: Alanine Aminotransferase 34 U/L (7-40); Albumin 4.3 g/dL (3.2-4.8); Anion Gap 11 (5-15); Aspartate Aminotransferase 17 U/L (13-40); BUN/Creatinine Ratio 9.2 (10.0-20.0); Bilirubin, Total 0.3 mg/dL (0.2-1.0); Calcium 9.3 mg/dL (8.7-10.4); Carbon Dioxide 26 mmol/L (20-31); Glucose 102 mg/dL (74-106); Potassium 3.8 mmol/L (3.5-5.1); Total Protein 6.6 g/dL (5.7-8.2)
[2025-03-31 06:29] LABS: Alkaline Phosphatase 222 U/L (46-116); Blood Urea Nitrogen 7 mg/dL (9-23); Chloride 108 mmol/L (98-107); Sodium 145 mmol/L (136-145)
[2025-03-31 07:55] VITALS: PULSE 77; RESP 12; O2SAT 96
[2025-03-31] MEDS: CHOLECALCIFEROL (VITD3) 1,000UNIT=25mCg TAB PO SCH (09:35)
[2025-03-31] MEDS: Escitalopram Oxalate 20 MG TABLET PO SCH (09:37)
[2025-03-31] MEDS ORDERED: MIRTAZAPINE 15 MG PO SCH (10:00)
[2025-03-31 14:30] VITALS: PULSE 75; RESP 15; O2SAT 96
--- NOTE | 2025-03-31 14:43 | DVHPN2 ---
Subjective Complains of right hip pain Reviewed: Care Plan, H&P, Labs, Medications Changes from previous H/P or p: No Changes General: Per HPI Eyes: No Pain, No Vision change, No Conjunctivae inflammation, No Eyelid inflammation, No Other, No Redness ENT: No Ear pain, No Ear discharge, No Nose pain, No Nose discharge, No Nose congestion, No Mouth pain, No Mouth swelling, No Throat pain, No Throat swelling, No Other Cardiovascular: No Chest Pain, No Palpitations, No Orthopnea, No Paroxysmal Noc. Dyspnea, No Edema, No Lt Headedness, No Other Respiratory: No Cough, No Dry, No Shortness of breath, No SOB with excertion, No Wheezing, No Hemoptysis, No Pleuritic Pain, No Sputum, No Other Gastrointestinal: No Nausea, No Vomiting, No Abdominal Pain, No Diarrhea, No Constipation, No Melena, No Hematochezia, No Other Genitourinary: No Dysuria, No Frequency, No Incontinence, No Hematuria, No Retention, No Other Musculoskeletal: No other, No neck pain, No shoulder pain, No arm pain, No back pain, No hand pain, No leg pain, No foot pain Skin: No Rash, No Lesions, No Jaundice, No Bruising, No Other Objective Vitals Vital Signs Date Time Temp Pulse Resp B/P (MAP) Pulse Ox O2 Delivery O2 Flow Rate FiO2 03/31/25 12:00 98.5 75 14 126/90 (102) 99 98.5 03/31/25 07:55 Room Air* 0 21 Intake/Output Intake and Output 03/31/25 07:00 Intake Total 1400 ml Balance 1400 ml Intake IV Total 1400 ml General Appearance: Alert, Oriented X3, Cooperative, mild distress HEENT: Atraumatic, PERRLA Cardiovascular: Normal S1, Normal S2 Musculoskeletal: Normal motor function Skin: Other (By inguinal surgical wound well approximated, noted induration to the medial aspect of the wound.) Psych/Mental Status: Mental status NL, Mood NL Medications Current Medications Medications Dose Ordered Sig/Xiang Route Start Time Stop Time Status Last Admin Dose Admin Sodium Chloride 10 ml Q8HR IV 03/30/25 22:00 03/31/25 05:22 10 ML Acetaminophen/ Hydrocodone Bitart 1 tab Q4HP PRN PO 03/30/25 16:30 03/31/25 06:50 1 TAB Ondansetron HCl 4 mg Q4HP PRN IV 03/30/25 16:30 Docusate Sodium 100 mg BIDPRN PRN PO 03/30/25 16:30 Acetaminophen 650 mg Q6HP PRN PO 03/30/25 16:30 Cholecalciferol 1,000 unit DAILY PO 03/31/25 10:00 03/31/25 09:35 1,000 UNIT Famotidine 20 mg BID PO 03/30/25 22:00 03/31/25 09:35 20 MG Gabapentin 300 mg TID PO 03/30/25 22:00 03/31/25 05:22 300 MG Indomethacin 25 mg TID PO 03/30/25 22:00 03/31/25 05:29 25 MG Baclofen 20 mg QID PO 03/30/25 18:00 03/31/25 11:56 20 MG Patient Own Medication 1 tab DAILY PO 03/31/25 10:00 Lacosamide 200 mg BID PO 03/30/25 22:00 03/31/25 09:36 200 MG Levetiracetam 1,500 mg BID PO 03/30/25 22:00 03/31/25 09:36 1,500 MG Mirtazapine 15 mg HS PO 03/31/25 22:00 Laboratory Results Laboratory Tests 03/31/25 05:30 Chemistry Test 03/31/25 05:30 Albumin 4.3 g/dL (3.2-4.8) Calcium Level 9.3 mg/dL (8.7-10.4) Total Protein 6.6 g/dL (5.7-8.2) LFT Test 03/31/25 05:30 Alanine Aminotransferase (ALT) 34 U/L (7-40) Alkaline Phosphatase 222 U/L (46-116) H Aspartate Amino Transferase (AST) 17 U/L (13-40) Total Bilirubin 0.3 mg/dL (0.2-1.0) Labs and/or images reviewed: Labs reviewed by me, Image(s) reviewed by me Assessment/Plan Assessment/Plan Impression: -history of traumatic brain injury -right-sided weakness -right inguinal/hip surgery, unspecified -obesity -rule out a abscess/surgical wound Plan: -history and plan of care discussed with the patient's mother via telephone. Assess patient's right inguinal area with noted severe induration with mild opening of wound without any noted drainage. Patient having severe pain to the area. -CT scan with contrast of right hip and pelvis -start antibiotic therapy with clindamycin and Rocephin -continue home antiseizure meds -repeat labs in a.m. Total time spent with patient discussing and formulating plan of care: 35 minutes. This medical document was created using an electronic medical record system with [employer] dictation system. Although this document has been carefully reviewed, there may still be some phonetic and typographical errors. These areas are purely typographical due to imperfections of the software programs, and do not reflect any compromise in the patient's medical care. Plan discussed with: Patient, Other (Mother, RN) My Orders Orders - EVELYN LICONA NP Procedure Category Date Status Time Pelvis With Contrast CT 03/31/25 Verified Only 14:34 Erythrocyte LAB 03/31/25 Verified Sedimentation Rate 14:34 C-Reactive Protein LAB 03/31/25 Verified 14:34 Ceftriaxone Ivpb PHA 04/01/25 Verified Rocephin 09:00 Clindamycin Ivpb PHA 03/31/25 Verified Cleocin 22:00 Date of Service: March 31, 2025 Billing Provider: EVELYN LICONA NP Common Visit Codes: [id number] INP/OBS CARE(HIGH) EVELYN LICONA NP March 31, 2025 14:43
[2025-03-31 15:33] LABS: Erythrocyte Sedimentation Rate 23 mm/hr (0-20)
[2025-03-31] MEDS: IOHEXOL 300 MG/ML 100ML BOTTLE IJ ONE (15:36)
[2025-03-31 16:21] VITALS: RESP 16; O2SAT 96
--- NOTE | 2025-03-31 16:23 | DVH ---
Indication: right inguinal surgical wound, questionable abscess Technique: CT axial images of the right hemipelvis to the level of the distal right femur are obtaine d with intravenous contrast. Coronal and sagittal reformats were obtained. Radiation Dose Information: CTDI volume is 18.49 mGy. Dose-length product is 1047.13 mGy*cm Comparison: None FINDINGS/IMPRESSION: Please note that the scan was performed of the right hemipelvis/inguinal region and does not evaluate the left aspect of the pelvis. Bladder partially distended. Tiny amount of fluid within the right paracolic gutter. There are destructive changes of the right femoral head and neck with proximal migration of the right femoral diaphysis. There are also erosive changes of the anterior and posterior acetabular wall. The re is a large fluid collection involving the right hip joint extending into the right inguinal region demonstrates components of rim enhancement measuring 9.9 x 7.9 by 11.9 cm with surrounding stranding . These findings are concerning for abscess / septic arthritis with bony destruction of the right hip joint, concerning for osteomyelitis/aggressive process. Recommend surgical consultation for further evaluation and management. Right anteromedial thigh subcutaneous thickening and soft tissue stranding. Right inguinal lymphadenopathy measuring up to 11 mm. There are postsurgical changes in the right inguinal region. Correlate with surgical history as to wh ether these are related to endarterectomy or other etiologies. Heterotopic mineralization within the right iliac crest region.
[2025-03-31 17:00] VITALS: BP 104/64; PULSE 75; RESP 16; TEMP 98.2; O2SAT 97
[2025-03-31 20:00] VITALS: PULSE 89; RESP 20; O2SAT 97
[2025-03-31 21:00] VITALS: BP 107/57; PULSE 89; RESP 20; TEMP 97.8; O2SAT 97
[2025-03-31] MEDS: CLINDAMYCIN 300MG IV 50 ML IV SCH (21:36)
[2025-03-31] MEDS: MIRTAZAPINE 30 MG TAB PO SCH (21:45)
[2025-04-01 07:46] VITALS: RESP 20; O2SAT 97
[2025-04-01 09:00] VITALS: BP 115/58; PULSE 92; RESP 21; TEMP 97.9; O2SAT 92
[2025-04-01] MEDS ORDERED: VANCOMYCIN PER PHARMACY 0 MG IV SCH (09:15)
--- NOTE | 2025-04-01 09:17 | DVHDS2 ---
Discharge Summary Date of Admission March 30, 2025 at 16:22 Date of Discharge: April 01, 2025 Admitting Diagnosis Metabolic encephalopathy, breakthrough seizure Labs/Diagnostic Data: Laboratory Results Test 03/31/25 05:30 White Blood Count 3.8 10^3/uL (4.4-10.8) Red Blood Count 4.09 10^6/uL (4.5-5.90) Hemoglobin 10.3 g/dL (13.5-17.5) Hematocrit 31.0 % (41.0-53.0) Mean Corpuscular Volume 75.9 fL (80.0-100.0) Mean Corpuscular Hemoglobin 25.2 pg (28.0-32.0) Mean Corpuscular Hemoglobin Concent 33.2 g/dL (32.0-36.0) Red Cell Distribution Width 15.6 % (11.8-14.3) Platelet Count 374 10^3/uL (140-450) Mean Platelet Volume 7.9 fL (6.9-10.8) Neutrophils (%) (Auto) 71.2 % (37.0-80.0) Lymphocytes (%) (Auto) 20.2 % (10.0-50.0) Monocytes (%) (Auto) 6.4 % (0.0-12.0) Eosinophils (%) (Auto) 1.5 % (0.0-7.0) Basophils (%) (Auto) 0.7 % (0.0-2.0) Neutrophils # (Auto) 2.7 10 ^3/uL (1.6-8.6) Lymphocytes # (Auto) 0.8 10 ^3/uL (0.4-5.4) Monocytes # (Auto) 0.2 10 ^3/uL (0-1.3) Eosinophils # (Auto) 0.1 10 ^3/uL (0-0.8) Basophils # (Auto) 0 10 ^3/uL (0-0.2) Nucleated Red Blood Cells 0.1 % Erythrocyte Sedimentation Rate 23 mm/hr (0-20) Sodium Level 145 mmol/L (136-145) Potassium Level 3.8 mmol/L (3.5-5.1) Chloride Level 108 mmol/L (98-107) Carbon Dioxide Level 26 mmol/L (20-31) Anion Gap 11 (5-15) Blood Urea Nitrogen 7 mg/dL (9-23) Creatinine 0.76 mg/dL (0.700-1.30) Glomerular Filtration Rate Calc 128 mL/min (>90) BUN/Creatinine Ratio 9.2 (10.0-20.0) Serum Glucose 102 mg/dL (74-106) Calcium Level 9.3 mg/dL (8.7-10.4) Total Bilirubin 0.3 mg/dL (0.2-1.0) Aspartate Amino Transferase (AST) 17 U/L (13-40) Alanine Aminotransferase (ALT) 34 U/L (7-40) Alkaline Phosphatase 222 U/L (46-116) C-Reactive Protein High Sensitivity 1.78 mg/dL (<1.0) Total Protein 6.6 g/dL (5.7-8.2) Albumin 4.3 g/dL (3.2-4.8) Other Laboratory Tests 03/31/25 05:30 Brief Hx & Hospital Course: History of Present Illness Vadim العلي is a 25-year-old male with past medical history of epilepsy, traumatic brain injury s/p craniectomy at [facility] in July 2022. Patient was brought to ER today due to a seizure. Patient was at home with his mother. She has a camera in his room and she thought she saw him having a seizure. She states she went in there and he was foaming at the mouth and shaking, but he was talking to her. She called EMS and had him brought in. After being here the mother reached out to his doctor and sent him the video of the seizure. She states he said it is not a seizure, it is a response from the surgery he recently had. The patient had right hip surgery 03/01/2025 and is recovering from that and experiencing pain that causes him to shake. The mother also states that she has been doing dressing changes to his right hip surgical wound 2-3 times a day. She states that 3 of the jareth came out and it is a little open. She is using butterfly bandages to hold it together. Course of hospitalization: Long discussion was made with the patient's mother regarding history of present illness including wound to right hip. After assessment of the patient, his found they did an anterior approach, the inguinal area to fixed the patient's hip with some dehiscence noted. There was also noted severe induration of the surgical site more in the medial aspect. CT scan of pelvis and thigh was performed with IV contrast was reveals questionable septic arthritis with large fluid collection. Findings were discussed with the patient's mother this morning, who states that the orthopedic surgeon's name was Hari Robison at [facility]. She is agreement with efforts being made to transfer the patient back to the surgeon for further intervention. Patient will continue current antibiotic therapy and pain regimen until transfer. Physical examination General: Alert and Oriented x3. No acute distress. Well-nourished. Obesity Eyes: EOMI. Anicteric. HENT: Moist mucous membranes. Lungs: Clear to auscultation bilaterally. No accessory muscle use. Cardiovascular: Regular rate and rhythm. No murmur. No JVD. Abdomen: Soft, non-tender and non-distended. No palpable masses. Extremities: No edema. Non-tender. Skin: No rashes or lesions. Warm. Neurologic: No focal neurological deficits. CN II-XII grossly intact, but not individually tested. Psychiatric: Cooperative. Appropriate mood and affect. Total time spent with patient discussing and formulating plan of care: 35 minutes. This medical document was created using an electronic medical record system with [employer] computerized dictation system. Although this document has been carefully reviewed, there may still be some phonetic and typographical errors. These areas are purely typographical due to imperfections of the software programs, and do not reflect any compromise in the patient's medical care. Condition at Discharge: Guarded Final Diagnosis/Problems List Breakthrough seizures Postop right hip surgical infection Secondary diagnosis: History of traumatic brain injury -obesity -rule out septic arthritis Discharge Disposition: Acute Care Facility Discharge Instruct/Medications Diet: Regular Activity: No Restrictions, As Tolerated Follow Up/Referral: Accepting surgeon at [facility] Medications: Refer to medication reconciliation form 36 Discharge Statement: "Patient was advised to return to the ER or call 911 if any headaches, dizziness, shortness of breath, chest pain, abdominal pain, bleeding, fevers, or worsening of medical condition. Patient was counseled about treatment plan, medications, possible side effects, patientverbalized understanding. All questions were answered to the best of my ability. This discharge took greater then 30 minutes in planning, reviewing documentation, counseling the patient, and discussing with other team members." ASSESSMENT ASSESSMENT Assessment Breakthrough seizures Postop right hip surgical infection Date of Service: April 01, 2025 Billing Provider: EVELNY LICONA NP Common Visit Codes: 65187-MIH/OBS DISCH DAY >30min EVELYN LICONA NP April 01, 2025 09:17
[2025-04-01] MEDS: VANCOMYCIN 1GM/200ML PM 250 ML IV SCH (10:05)
[2025-04-01] MEDS: cefTRIAXone 1GM/50ML D5W 50 ML IV SCH (10:05)
[2025-04-01 13:00] VITALS: BP 118/92; PULSE 67; RESP 20; TEMP 97.9; O2SAT 100
[2025-04-01 17:00] VITALS: BP 129/81; PULSE 76; RESP 17; TEMP 98.4; O2SAT 97
[2025-04-01 20:00] VITALS: PULSE 69; RESP 17; O2SAT 97
[2025-04-01] MEDS: VANCOMYCIN 1.5GM/300ML 300 ML IV SCH (20:47)
[2025-04-01 21:00] VITALS: BP 100/61; PULSE 69; RESP 17; TEMP 97.6; O2SAT 97
[2025-04-02] VITALS (7 sets, daily range): BP systolic 122–138; BP diastolic 64–92; PULSE 0–82; RESP 16–18; TEMP 97.5–98.9; O2SAT 97–100
--- NOTE | 2025-04-02 16:33 | DVHPN2 ---
Subjective in bed resting still waiting for transfer Reviewed: Care Plan, H&P, Labs, Medications Changes from previous H/P or p: No Changes General: Per HPI Eyes: No Pain, No Vision change, No Conjunctivae inflammation, No Eyelid inflammation, No Other, No Redness ENT: No Ear pain, No Ear discharge, No Nose pain, No Nose discharge, No Nose congestion, No Mouth pain, No Mouth swelling, No Throat pain, No Throat swelling, No Other Cardiovascular: No Chest Pain, No Palpitations, No Orthopnea, No Paroxysmal Noc. Dyspnea, No Edema, No Lt Headedness, No Other Respiratory: No Cough, No Dry, No Shortness of breath, No SOB with excertion, No Wheezing, No Hemoptysis, No Pleuritic Pain, No Sputum, No Other Gastrointestinal: No Nausea, No Vomiting, No Abdominal Pain, No Diarrhea, No Constipation, No Melena, No Hematochezia, No Other Genitourinary: No Dysuria, No Frequency, No Incontinence, No Hematuria, No Retention, No Other Musculoskeletal: No other, No neck pain, No shoulder pain, No arm pain, No back pain, No hand pain, No leg pain, No foot pain Skin: No Rash, No Lesions, No Jaundice, No Bruising, No Other Objective Vitals Vital Signs Date Time Temp Pulse Resp B/P (MAP) Pulse Ox O2 Delivery O2 Flow Rate FiO2 04/02/25 13:26 98.9 82 16 123/73 (90) 100 98.9 04/02/25 07:56 Room Air* 0 21 Intake/Output Intake and Output 04/02/25 07:00 Intake Total 1550 ml Output Total 850 ml Balance 700 ml Intake Oral 1200 ml IV Total 350 ml Output Urine Total 850 ml # Voids 2 # Bowel Movements 1 General Appearance: Alert, Oriented X3, Cooperative, mild distress HEENT: Atraumatic, PERRLA Cardiovascular: Normal S1, Normal S2 Musculoskeletal: Normal motor function Skin: Other (By inguinal surgical wound well approximated, noted induration to the medial aspect of the wound.) Psych/Mental Status: Mental status NL, Mood NL Medications Current Medications Medications Dose Ordered Sig/Xiang Route Start Time Stop Time Status Last Admin Dose Admin Sodium Chloride 10 ml Q8HR IV 03/30/25 22:00 04/02/25 14:21 10 ML Acetaminophen/ Hydrocodone Bitart 1 tab Q4HP PRN PO 03/30/25 16:30 04/01/25 15:27 1 TAB Ondansetron HCl 4 mg Q4HP PRN IV 03/30/25 16:30 Docusate Sodium 100 mg BIDPRN PRN PO 03/30/25 16:30 Acetaminophen 650 mg Q6HP PRN PO 03/30/25 16:30 Cholecalciferol 1,000 unit DAILY PO 03/31/25 10:00 04/02/25 09:47 1,000 UNIT Famotidine 20 mg BID PO 03/30/25 22:00 04/02/25 09:47 20 MG Gabapentin 300 mg TID PO 03/30/25 22:00 04/02/25 14:24 300 MG Indomethacin 25 mg TID PO 03/30/25 22:00 04/02/25 14:24 25 MG Baclofen 20 mg QID PO 03/30/25 18:00 04/02/25 12:15 20 MG Patient Own Medication 1 tab DAILY PO 03/31/25 10:00 Levetiracetam 1,500 mg BID PO 03/30/25 22:00 04/02/25 09:47 1,500 MG Mirtazapine 15 mg HS PO 03/31/25 22:00 04/01/25 21:18 15 MG Ceftriaxone Sodium 50 ml @ 100 mls/hr DAILY@09 IV 04/01/25 09:00 04/02/25 08:57 100 MLS/HR Vancomycin HCl 0 ml @ 0 mls/hr UD IV 04/01/25 09:15 Vancomycin HCl 300 ml @ 200 mls/hr Q12H IV 04/01/25 20:00 04/02/25 09:07 200 MLS/HR Lacosamide 200 mg BID PO 04/02/25 10:00 04/02/25 09:47 200 MG Laboratory Results Laboratory Tests 03/31/25 05:30 Microbiology Microbiology Date/Time Source Procedure Growth Status 04/01/25 19:20 Hip Right Gram Stain Pending Resulted 04/01/25 19:20 Hip Right Wound Culture - Preliminary Resulted Assessment/Plan Assessment/Plan -history of traumatic brain injury -right-sided weakness -right inguinal/hip surgery, unspecified -obesity -rule out a abscess/surgical wound Plan: -history and plan of care discussed with the patient's mother via telephone. Assess patient's right inguinal area with noted severe induration with mild opening of wound without any noted drainage. Patient having severe pain to the area. -CT scan with contrast of right hip and pelvis -start antibiotic therapy with clindamycin and Rocephin -continue home antiseizure meds -repeat labs in a.m. Total time spent with patient discussing and formulating plan of care: 35 minutes. Plan discussed with: Patient My Orders Orders - ABDULLAHI RECINOS MD Procedure Category Date Status Time Insert Midline ORDERS 04/02/25 Transmitted 11:15 Date of Service: April 02, 2025 Billing Provider: ABDULLAHI RECINOS MD Common Visit Codes: [id number] INP/OBS CARE(HIGH) ABDULLAHI RECINOS MD April 02, 2025 16:33
== END 2025-04-02 22:46 | disposition short-term general hospital (02) | DRG 559 ==
LOC: EDBD 08:31 → ER 08:31 → EDUNIT# 08:31 → OVERFLOW 16:22 → WEST WING 03-31 16:08
PROVIDERS: ADMIT Nurse Practitioner Acute Care; ATTEND Nurse Practitioner Acute Care
DX: T84.51XA Infection and inflammatory reaction due to internal right hip prosthesis, initial encounter (principal); A41.9 Sepsis, unspecified organism; M00.9 Pyogenic arthritis, unspecified; G40.909 Epilepsy, unspecified, not intractable, without status epilepticus; J45.909 Unspecified asthma, uncomplicated; Y83.8 Other surgical procedures as the cause of abnormal reaction of the patient, or of later complication, without mention of misadventure at the time of the procedure; E66.9 Obesity, unspecified; Z87.820 Personal history of traumatic brain injury; Z88.5 Allergy status to narcotic agent; Z68.35 Body mass index [BMI] 35.0-35.9, adult; Y92.89 Other specified places as the place of occurrence of the external cause
CPT/HCPCS: 36415; 70450; 72193; 80048; 80053; 80202; 82565; 85025; 85652; 86141; 87077; 87186; 87205; 96361; 96365; 96375; 97163; G0378; J3490